=== PATIENT | female | born 1950 | race African-American/Black ===

== ENCOUNTER 2017-02-24 19:04 | Inpatient (IN) | payer MEDICARE, BC ==
[~2017-02-24] VITALS: Ht 165.1 cm; Wt 90.5 kg
[~2017-02-24 19:04] MED LIST: BABY81CH CHEW; BENZ1TAB PO; CLAR10TA7 PO; CLON0.5T PO; COZA100T PO; LORTA5 PO; PRAV80 PO; RISP1 PO; RISP3TAB23 PO; SYNT175T PO; TRAM50 PO; diabetic meds PO
[2017-02-24 22:04] VITALS: BP_SYST 137; BP_SYST 144; BP_DIAS 62; BP_DIAS 87; PULSE 89; PULSE 93; RESP 18; TEMP 97.4; O2SAT 95; O2SAT 98
--- NOTE | 2017-02-25 00:58 | PD ---
HPI Chief Complaint: Altered Mental Status Time Seen by Provider: 00:41 Travel History International Travel<30 days: No Contact w/Intl Traveler<30days: No Traveled to known affect area: No History of Present Illness HPI 66yo F with PMH of schizophrenia was brought in by [facility] for altered mental status for 1 day. As per triage note, pt has repetitive question and black stares and history of schizophrenia. Pt has been in the ED for a few hours prior to moving to a medical room so I was not able to speak with EVAC. Pt complains of dysuria. She is AAOx3. Said she cant walk even though the nurse informed me she walked to the bathroom. Denies any fever, chest pain, sob, n/v, abdominal pain, focal numbness. PFSH Past Medical History Arthritis: No Asthma: No Autoimmune Disease: No Blood Disorders: No Anxiety: Yes Depression: No Heart Rhythm Problems: No Cancer: No Cardiac Catheterization: Yes (?2000 PACEMAKER) Cardiovascular Problems: Yes High Cholesterol: Yes Chemotherapy: No Chest Pain: Yes Congestive Heart Failure: No COPD: No Cerebrovascular Accident: No Diabetes: Yes Patient Takes Glucophage: No Diminished Hearing: No Endocrine: Yes Gastrointestinal Disorders: Yes GERD: Yes Glaucoma: No Genitourinary: No Headaches: Yes Hepatitis: No Hiatal Hernia: No Hypertension: Yes Immune Disorder: No Implanted Vascular Access Dvce: Yes (Stents x 2 plus pacemaker) Kidney Stones: No Musculoskeletal: Yes Neurologic: Yes Psychiatric: Yes Reproductive: No Respiratory: No Migraines: No Myocardial Infarction: Yes Radiation Therapy: No Renal Failure: No Schizophrenia: Yes Seizures: No Sickle Cell Disease: No Sleep Apnea: No Thyroid Disease: Yes Ulcer: Yes PNEUMOCCOCAL Vaccine (Year): 2 ?: Not Menopausal: Yes : 2 Para: 2 Past Surgical History Abdominal Surgery: No AICD: No Arteriovenous Shunt: No Body Medical Devices: stents to heart x2, PACEMAKER Cardiac Surgery: Yes (PACEMAKER AND STENTS) Coronary Stent: Yes Ear Surgery: No Endocrine Surgery: No Eye Surgery: No Genitourinary Surgery: No Gynecologic Surgery: Yes (SMOKE AND FLAME SPECIALIST PROCEDURE TO STOP BLEEDING PER PT) Insulin Pump: No Joint Replacement: No Neurologic Surgery: No Oral Surgery: Yes (TEETH EXTRACTED) Pacemaker: Yes Thoracic Surgery: No Other Surgery: Yes (TEETH EXTRACTION-CARDIAC STENT X2- SMOKE AND FLAME SPECIALIST PROCEDURE TO STOP BLEEDING) Social History Alcohol Use: Yes ("I DRINK A LOT OF BEER") Tobacco Use: Yes (1 PPD) Substance Use: Yes (WEED) Allergies-Medications (Allergen,Severity, Reaction): Coded Allergies: penicillin G (Unverified Allergy, Severe, Hives, VOMITING, 02/25/17) Reported Meds & Prescriptions Reported Meds & Active Scripts Active Ultram (Tramadol HCl) 50 Mg Tab 50-100 Mg PO Q6H PRN FOR PAIN Reported [diabetic meds] 1 Tab PO DAILY Synthroid (Levothyroxine Sodium) 175 Mcg Tab 175 Mcg PO DAILY Lortab 5/325 Tab (Hydrocodone-Acetaminophen) 1 Tab Tab 1 Tab PO Q6H PRN Risperdal (Risperidone) 1 Mg Tab 1 Mg PO DAILY Clonazepam 0.5 Mg Tab 0.5 Mg PO TID Benztropine Mesylate 1 Mg Tab 1 Mg PO Q12H Pravachol 80 Mg Tab (Pravastatin Sod) 80 Mg Tab 80 Mg PO DAILY Baby Aspirin (Aspirin) 81 Mg Chw 81 Mg CHEW DIRECTED Cozaar (Losartan Potassium) 100 Mg Tab 100 Mg PO DAILY Claritin (Loratadine) 10 Mg Tab 10 Mg PO DAILY Risperdal (Risperidone) 3 Mg Tab 4 Mg PO HS Review of Systems Except as stated in HPI: all other systems reviewed are Neg Physical Exam Narrative GENERAL: 66yo F not in distress. SKIN: Focused skin assessment warm/dry. HEAD: Atraumatic. Normocephalic. EYES: Pupils equal and round at 3mm bilaterally. EOMI. ENT: No nasal bleeding or discharge. Mucous membranes pink and moist. NECK: Trachea midline. No JVD. CARDIOVASCULAR: Regular rate and rhythm. No murmur appreciated. RESPIRATORY: No accessory muscle use. Clear to auscultation. Breath sounds equal bilaterally. GASTROINTESTINAL: Abdomen soft, non-tender, nondistended. MUSCULOSKELETAL: No obvious deformities. No clubbing. No cyanosis. No edema. NEUROLOGICAL: Awake and alert. No obvious cranial nerve deficits. Pt will not lift bilateral lower extremity. Normal reflex with good strength of lower extremities during reflex testing. Muscle strength 5/5 in bilateral upper extremity. Sensation intact. PSYCHIATRIC: Inappropriate mood and affect; poor insight and judgment. Data Data Last Documented VS Vital Signs Date Time Temp Pulse Resp B/P (MAP) Pulse Ox O2 Delivery O2 Flow Rate FiO2 02/25/17 14:03 73 14 156/92 (113) 98 Room Air 02/25/17 01:[address] Brain W/O Iv Contrast(Rout) (02/25/17 ) Complete Blood Count With Diff (02/25/17 00:50) Basic Metabolic Panel (Bmp) (02/25/17 00:50) Prothrombin Time / Inr (Pt) (02/25/17 00:50) Act Partial Throm Time (Ptt) (02/25/17 00:50) Thyroid Stimulating Hormone (02/25/17 00:50) Ammonia (02/25/17 00:50) Psych Screen (02/25/17 00:50) Urinalysis - C+S If Indicated (02/25/17 00:50) Diet 1800 Ada Cons Carb (02/25/17 Breakfast) Labs Laboratory Tests Test 02/25/17 01:10 White Blood Count 7.6 TH/MM3 Red Blood Count 4.38 MIL/MM3 Hemoglobin 13.6 GM/DL Hematocrit 40.3 % Mean Corpuscular Volume 91.9 FL Mean Corpuscular Hemoglobin 30.9 PG Mean Corpuscular Hemoglobin Concent 33.7 % Red Cell Distribution Width 14.6 % Platelet Count 275 TH/MM3 Mean Platelet Volume 7.5 FL Neutrophils (%) (Auto) 43.2 % Lymphocytes (%) (Auto) 44.4 % Monocytes (%) (Auto) 8.3 % Eosinophils (%) (Auto) 3.7 % Basophils (%) (Auto) 0.4 % Neutrophils # (Auto) 3.3 TH/MM3 Lymphocytes # (Auto) 3.4 TH/MM3 Monocytes # (Auto) 0.6 TH/MM3 Eosinophils # (Auto) 0.3 TH/MM3 Basophils # (Auto) 0.0 TH/MM3 CBC Comment DIFF FINAL Differential Comment Prothrombin Time 10.5 SEC Prothromb Time International Ratio 1.0 RATIO Activated Partial Thromboplast Time 25.8 SEC Blood Urea Nitrogen 23 MG/DL Creatinine 1.47 MG/DL Random Glucose 146 MG/DL Calcium Level 9.2 MG/DL Sodium Level 138 MEQ/L Potassium Level 3.4 MEQ/L Chloride Level 101 MEQ/L Carbon Dioxide Level 30.1 MEQ/L Anion Gap 7 MEQ/L Estimat Glomerular Filtration Rate 43 ML/MIN Ammonia 25 MCMOL/L Thyroid Stimulating Hormone 3rd Gen 18.000 uIU/ML MDM Medical Decision Making Medical Screen Exam Complete: Yes Emergency Medical Condition: Yes Differential Diagnosis Schizophrenia vs. CVA (doubtful since pt did walk to bathroom as per nurse and move lower extremity when I left the room) vs. UTI vs. dehydration vs. electrolyte abnormality Narrative Course 66yo F with schizophrenia here with "Altered mental status". 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 However, will do work up for altered mental status to r/o other causes first. Pt will not lift her lower extremities on my exam but was noted to be ambulatory by nursing staff earlier. I also saw that pt was able to flex both knees by herself later. Pt seen at the end of my shift so will sign out to PA to follow up labs, UA, CT brain. Psych screen placed. Diagnosis Primary Impression: Schizophrenia Qualified Codes: F20.9 - Schizophrenia, unspecified Katerin Andrew DO Feb 25, 2017 00:58
[2017-02-25 01:17] VITALS: BP 143/84; PULSE 66; RESP 18; TEMP 98.1; O2SAT 96
[2017-02-25 01:26] LABS: AUTOMATED NEUTROPHIL # 3.3 TH/MM3 (1.8-7.7); BASOPHIL % 0.4 % (0.0-2.0); EOSINOPHIL # 0.3 TH/MM3 (0-0.4); EOSINOPHIL % 3.7 % (0.0-4.0); HEMATOCRIT 40.3 % (35.0-46.0); HEMOGLOBIN 13.6 GM/DL (11.6-15.3); LYMPH % 44.4 % (9.0-44.0); LYMPHOCYTE # 3.4 TH/MM3 (1.0-4.8); MEAN CELL VOLUME 91.9 FL (80.0-100.0); MEAN CORPUSCULAR HEMOGLOBIN 30.9 PG (27.0-34.0); MEAN CORPUSCULAR HGB CONC 33.7 % (32.0-36.0); MEAN PLATELET VOLUME 7.5 FL (7.0-11.0); MONO % 8.3 % (0.0-8.0); MONOCYTE # 0.6 TH/MM3 (0-0.9); NEUT % 43.2 % (16.0-70.0); PLATELET COUNT 275 TH/MM3 (150-450); RED BLOOD COUNT 4.38 MIL/MM3 (4.00-5.30); RED CELL DISTRIBUTION WIDTH 14.6 % (11.6-17.2); WHITE BLOOD COUNT 7.6 TH/MM3 (4.0-11.0)
[2017-02-25 01:42] LABS: PROTHROMBIN TIME - PATIENT 10.5 SEC (9.8-11.6)
[2017-02-25 01:46] LABS: BICARBONATE 30.1 MEQ/L (21.0-32.0); CALCIUM 9.2 MG/DL (8.5-10.1); CREATININE 1.47 MG/DL (0.50-1.00)
--- NOTE | 2017-02-25 02:55 | RADRPT ---
EXAM DATE/TIME: 02/25/2017 02:26 [facility] COMPARISON: CT BRAIN W/O CONTRAST, December 18, 2010, 13:38. INDICATIONS : Altered mental status. RADIATION DOSE: 56.35 CTDIvol (mGy) MEDICAL HISTORY : Hypertension. Myocardial infarction. SURGICAL HISTORY : Pacemaker. ENCOUNTER: Initial ACUITY: 1 day PAIN SCALE: Non-responsive LOCATION: cranial TECHNIQUE: Multiple contiguous axial images were obtained of the head. Using automated exposure control and adj ustment of the mA and/or kV according to patient size, radiation dose was kept as low as reasonably a chievable to obtain optimal diagnostic quality images. DICOM format image data is available electro nically for review and comparison. FINDINGS: CEREBRUM: The ventricles are normal for age. No evidence of midline shift, mass lesion, hemorrhage or acute in farction. No extra-axial fluid collections are seen. POSTERIOR FOSSA: The cerebellum and brainstem are intact. The 4th ventricle is midline. The cerebellopontine angle i s unremarkable. EXTRACRANIAL: The visualized portion of the orbits is intact. SKULL: The calvaria is intact. No evidence of skull fracture. CONCLUSION: 1. No evidence of acute intracranial pathology. No masses are identified. Riu Mccollum MD on February 25, 2017 at 2:53 Board Certified Radiologist. This report was verified electronically.
--- NOTE | 2017-02-25 03:22 | PD ---
Physical Exam Date Seen by Provider: Feb 25, 2017 Time Seen by Provider: 03:18 Narrative Neuro: The patient is alert and oriented to person. She keeps her eyes closed but opens them on command. Patient reports inability to move her lower legs although when she is given noxious stimuli she is able to raise her feet up. She is distracted and she is able to flex and extend her feet at the ankles. Patient has intact gross sensation. She has intact light and sharp sensation in her feet. Deep tendon reflexes are 3+ bilaterally. According to the nursing staff she was noted up to the bathroom earlier in the evening. Data Data Last Documented VS Vital Signs Date Time Temp Pulse Resp B/P (MAP) Pulse Ox O2 Delivery O2 Flow Rate FiO2 02/25/17 01:17 98.1 66 18 143/84 (103) 96 Room Air Orders Orders Ct Brain W/O Iv Contrast(Rout) (02/25/17 ) Complete Blood Count With Diff (02/25/17 00:50) Basic Metabolic Panel (Bmp) (02/25/17 00:50) Prothrombin Time / Inr (Pt) (02/25/17 00:50) Act Partial Throm Time (Ptt) (02/25/17 00:50) Thyroid Stimulating Hormone (02/25/17 00:50) Ammonia (02/25/17 00:50) Psych Screen (02/25/17 00:50) Urinalysis - C+S If Indicated (02/25/17 00:50) Labs Laboratory Tests Test 02/25/17 01:10 White Blood Count 7.6 TH/MM3 Red Blood Count 4.38 MIL/MM3 Hemoglobin 13.6 GM/DL Hematocrit 40.3 % Mean Corpuscular Volume 91.9 FL Mean Corpuscular Hemoglobin 30.9 PG Mean Corpuscular Hemoglobin Concent 33.7 % Red Cell Distribution Width 14.6 % Platelet Count 275 TH/MM3 Mean Platelet Volume 7.5 FL Neutrophils (%) (Auto) 43.2 % Lymphocytes (%) (Auto) 44.4 % Monocytes (%) (Auto) 8.3 % Eosinophils (%) (Auto) 3.7 % Basophils (%) (Auto) 0.4 % Neutrophils # (Auto) 3.3 TH/MM3 Lymphocytes # (Auto) 3.4 TH/MM3 Monocytes # (Auto) 0.6 TH/MM3 Eosinophils # (Auto) 0.3 TH/MM3 Basophils # (Auto) 0.0 TH/MM3 CBC Comment DIFF FINAL Differential Comment Prothrombin Time 10.5 SEC Prothromb Time International Ratio 1.0 RATIO Activated Partial Thromboplast Time 25.8 SEC Blood Urea Nitrogen 23 MG/DL Creatinine 1.47 MG/DL Random Glucose 146 MG/DL Calcium Level 9.2 MG/DL Sodium Level 138 MEQ/L Potassium Level 3.4 MEQ/L Chloride Level 101 MEQ/L Carbon Dioxide Level 30.1 MEQ/L Anion Gap 7 MEQ/L Estimat Glomerular Filtration Rate 43 ML/MIN Ammonia 25 MCMOL/L Thyroid Stimulating Hormone 3rd Gen 18.000 uIU/ML [facility] Medical Record Reviewed: Yes Supervised Visit with MALAIKA: Yes Interpretation(s) Last [address] 02/25/17 0000 Signed Impressions: Service Date/Time: Saturday, February 25, 2017 02:26 - CONCLUSION: 1. No evidence of acute intracranial pathology. No masses are identified. Rui Mccollum MD Laboratory Tests Test 02/25/17 01:10 White Blood Count 7.6 TH/MM3 Red Blood Count 4.38 MIL/MM3 Hemoglobin 13.6 GM/DL Hematocrit 40.3 % Mean Corpuscular Volume 91.9 FL Mean Corpuscular Hemoglobin 30.9 PG Mean Corpuscular Hemoglobin Concent 33.7 % Red Cell Distribution Width 14.6 % Platelet Count 275 TH/MM3 Mean Platelet Volume 7.5 FL Neutrophils (%) (Auto) 43.2 % Lymphocytes (%) (Auto) 44.4 % Monocytes (%) (Auto) 8.3 % Eosinophils (%) (Auto) 3.7 % Basophils (%) (Auto) 0.4 % Neutrophils # (Auto) 3.3 TH/MM3 Lymphocytes # (Auto) 3.4 TH/MM3 Monocytes # (Auto) 0.6 TH/MM3 Eosinophils # (Auto) 0.3 TH/MM3 Basophils # (Auto) 0.0 TH/MM3 CBC Comment DIFF FINAL Differential Comment Prothrombin Time 10.5 SEC Prothromb Time International Ratio 1.0 RATIO Activated Partial Thromboplast Time 25.8 SEC Blood Urea Nitrogen 23 MG/DL Creatinine 1.47 MG/DL Random Glucose 146 MG/DL Calcium Level 9.2 MG/DL Sodium Level 138 MEQ/L Potassium Level 3.4 MEQ/L Chloride Level 101 MEQ/L Carbon Dioxide Level 30.1 MEQ/L Anion Gap 7 MEQ/L Estimat Glomerular Filtration Rate 43 ML/MIN Ammonia 25 MCMOL/L Thyroid Stimulating Hormone 3rd Gen 18.000 uIU/ML Differential Diagnosis MDM: High Differential diagnoses: Schizophrenia, schizoaffective disorder, bipolar, anxiety, depression, adjustment reaction, mood disorder NOS, ODD, depressive disorder NOS, dementia, dementia with agitation, psychosis NOS, substance induced mood disorder, DMDD, Asperger syndrome, infection,electrolyte abnormality, malingering. Narrative Course Mental health screening discussed with the patient. Psychiatric screen ordered. The patient has been medically cleared. The patient's complain of an ability to ambulate etiology is unclear whether this may be a conversion type reaction or worsening catatonic type reaction. Patient does have hypothyroidism but her TSH is only 18. I do not believe this is a myxedema. It was noted by the nursing staff that the patient had been up and ambulatory earlier in the evening to the bathroom. This is schizophrenia, medical clearance for psychiatric admission Diagnosis Primary Impression: Schizophrenia Qualified Codes: F20.9 - Schizophrenia, unspecified Additional Impression: Medical clearance for psychiatric admission Condition: Maurilio Leiva Feb 25, 2017 03:22
[2017-02-25 06:40] VITALS: PULSE 65; RESP 16; O2SAT 98
[2017-02-25 08:46] VITALS: BP 163/99; PULSE 68; RESP 16; O2SAT 99
[2017-02-25 14:03] VITALS: BP 156/92; PULSE 73; RESP 14; O2SAT 98
[2017-02-25] MEDS ORDERED: ALUMINUM/MAGNESIUM/SIMETH 30 ML CUP PO PRN (16:30)
[2017-02-25] MEDS ORDERED: LORazepam 2 MG/ML VIAL IM PRN ×2 (16:30)
[2017-02-25] MEDS ORDERED: LORazepam 1 MG TAB PO PRN (16:30)
[2017-02-25] MEDS ORDERED: LORazepam 0.5 MG TAB PO PRN (16:30)
[2017-02-25] MEDS ORDERED: MAGNESIUM HYDROXIDE SUSP 30 ML CUP PO PRN (16:30)
--- NOTE | 2017-02-25 16:40 | HHI.HP ---
Provisional Diagnosis Admission Date [place] I. Schizophrenia [place] II. Deferred [place] III. COPD, diabetes, hypertension, hypothyroidism Certification of Person's Competence To Provide Express and Informed Consent I have personally examined Darya Soni , a person being served at [facility] on, Feb 25, 2017 16:31. Express and informed consent means consent voluntarily given in writing, by a competent person, after sufficient explanation and disclosure of the subject matter involved to enable the person to make a knowing and willful decision without any element of force, fraud, deceit, duress, or other form of constraint or coercion. This person is 18 years of age or older, is not now known to be incompetent to consent to treatment with a guardian advocate, and does not have a health care surrogate or proxy currently making medical treatment decisions. I have found this person to be one of the following: [] Competent to provide express and informed consent, as defined above, for voluntary admission to this facility and is competent to provide express and informed consent for treatment. He/she has the consistent capacity to make well reasoned, willful, and knowing decisions concerning his or her medical or mental health treatment. The person fully and consistently understands the purpose of the admission for examination/placement and is fully capable of personally exercising all rights assured [place] Incompetent to provide express and informed consent to voluntary admission, and this is incompetent to provide express and informed consent to treatment. The person must be transferred to involuntary status and a petition for a guardian advocate filed with the Circuit Court. [] Refusing to provide express and informed consent to voluntary admission but is competent to provide express and informed consent for treatment. The person must be discharged or transferred to involuntary status. Form shall be completed within 24 hours of a person's arrival at the receiving facility and filed in the clinical record of each person: 1. Admitted on a voluntary basis 2. Permitted to provide express and informed consent to his/her own treatment 3. Allowed to transfer from involuntary to voluntary status 4. Prior to permitting a person to consent to his or her own treatment after having been previously found incompetent to consent to treatment. History of Present Illness Capacity: Has Capacity HPI The patient is a 66 year old woman, domiciled with her sister, unemployed, supported by [facility], with psychiatric history of schizophrenia, multiple psychiatric hospitalizations, she is on Risperdal 1 mg in the morning, 3 mg at bedtime, benztropine 1 mg twice a day, no previous suicidal attempts, COPD, who was brought in by [facility] for altered mental status for 1 day. As per triage note, pt has repetitive question and black stares and history of schizophrenia. Pt has been in the ED for a few hours prior to moving to a medical room so I was not able to speak with EVAC. On psychiatric evaluation the patient at the beginning is selectively mute, not speaking, just answering yes or not, she is visibly internally preoccupied. She says that she feels fine and she came here for no reason. To most of my questions she answered I don't know and stares. I spoke with his sister by phone, who told me that the patient was sent to the ER because she has been acutely psychotic, very aggressive at home with family members, and she has stated multiple times that she wants to kill her sister. She has been compliant with her medications, but she has been escalating to psychosis in the last 2 or 3 days. As per sister the patient does not use any drugs or alcohol. Review of Systems Except as stated in HPI: all other systems reviewed are Neg Substance Abuse History Drugs/Alcohol past 12 months No drugs or alcohol drugs or alcohol Past Family Social History Coded Allergies: penicillin G (Unverified Allergy, Severe, Hives, VOMITING, 02/25/17) Active Scripts Tramadol Hcl (Ultram) 50 Mg Tab, 50-100 MG PO Q6H Y, #30 TAB FOR PAIN Prov:Ethan Szymanski MD 12/28/12 Reported Medications [diabetic meds] No Conflict Check, 1 TAB PO DAILY 05/04/13 Synthroid 175 mcg (Synthroid 175 mcg) 175 Mcg Tab, 175 MCG PO DAILY, TAB 12/28/12 Hydrocodone/Acetaminophen 5 mg/325 mg (Hydrocodone/Acetaminophen 5 mg/325 mg) 1 Tab Tab, 1 TAB PO Q6H Y, TAB 12/28/12 Risperidone (Risperdal) 1 Mg Tab, 1 MG PO DAILY, TAB 11/21/12 Clonazepam (Clonazepam) 0.5 Mg Tab, 0.5 MG PO TID, TAB 11/21/12 Benztropine Mesylate (Benztropine Mesylate) 1 Mg Tab, 1 MG PO Q12H, TAB 11/21/12 Pravastatin Sod (Pravachol 80 Mg Tab) 80 Mg Tab, 80 MG PO DAILY 05/31/12 Aspirin (Baby Aspirin) 81 Mg Chw, 81 MG CHEW DIRECTED 05/31/12 Losartan Potassium (Cozaar) 100 Mg Tab, 100 MG PO DAILY 05/31/12 Loratadine (Claritin) 10 Mg Tab, 10 MG PO DAILY 05/31/12 Risperidone (Risperdal) 3 Mg Tab, 4 MG PO HS 05/29/11 Current Medications Medications (Trade) Dose Ordered Sig/Brittney Route Start Time Stop Time Status Last Admin (Ativan) 1 mg Q6H PRN PO 02/25/17 16:30 UNV (Ativan Inj) 1 mg Q6H PRN IM 02/25/17 16:30 UNV (Ativan) 0.5 mg Q12H PRN PO 02/25/17 16:30 UNV (Ativan Inj) 0.5 mg Q12H PRN IM 02/25/17 16:30 UNV (Tylenol) 650 mg Q4H PRN PO 02/25/17 16:30 UNV (Milk Of Magnesia Liq) 30 ml DAILY PRN PO 02/25/17 16:30 UNV (Mag-Al Plus Susp Liq) 30 ml Q6H PRN PO 02/25/17 16:30 UNV (Habitrol 21 Mg Patch.24 Hr) 1 patch DAILY T-DERMAL 02/25/17 16:30 UNV (Aspirin Chew) 81 mg DAILY CHEW 02/25/17 16:30 UNV (Cogentin) 1 mg Q12H PO 02/25/17 16:30 UNV (KlonoPIN) 0.5 mg TID PO 02/25/17 18:00 UNV (Claritin) 10 mg DAILY PO 02/25/17 16:30 UNV (Pravachol) 80 mg DAILY PO 02/25/17 16:30 UNV (risperDAL) 1 mg DAILY PO 02/25/17 16:30 UNV Non-Formulary Medication 100 mg DAILY PO 02/25/17 16:30 UNV Non-Formulary Medication 175 mcg DAILY PO 02/25/17 16:30 UNV Physical Exam Vital Signs Vital Signs Date Time Temp Pulse Resp B/P (MAP) Pulse Ox O2 Delivery O2 Flow Rate FiO2 02/25/17 14:03 73 14 156/92 (113) 98 Room Air 02/25/17 01:17 98.1 Lab Results Test 02/25/17 01:10 White Blood Count 7.6 TH/MM3 Red Blood Count 4.38 MIL/MM3 Hemoglobin 13.6 GM/DL Hematocrit 40.3 % Mean Corpuscular Volume 91.9 FL Mean Corpuscular Hemoglobin 30.9 PG Mean Corpuscular Hemoglobin Concent 33.7 % Red Cell Distribution Width 14.6 % Platelet Count 275 TH/MM3 Mean Platelet Volume 7.5 FL Neutrophils (%) (Auto) 43.2 % Lymphocytes (%) (Auto) 44.4 % Monocytes (%) (Auto) 8.3 % Eosinophils (%) (Auto) 3.7 % Basophils (%) (Auto) 0.4 % Neutrophils # (Auto) 3.3 TH/MM3 Lymphocytes # (Auto) 3.4 TH/MM3 Monocytes # (Auto) 0.6 TH/MM3 Eosinophils # (Auto) 0.3 TH/MM3 Basophils # (Auto) 0.0 TH/MM3 CBC Comment DIFF FINAL Differential Comment Prothrombin Time 10.5 SEC Prothromb Time International Ratio 1.0 RATIO Activated Partial Thromboplast Time 25.8 SEC Blood Urea Nitrogen 23 MG/DL Creatinine 1.47 MG/DL Random Glucose 146 MG/DL Calcium Level 9.2 MG/DL Sodium Level 138 MEQ/L Potassium Level 3.4 MEQ/L Chloride Level 101 MEQ/L Carbon Dioxide Level 30.1 MEQ/L Anion Gap 7 MEQ/L Estimat Glomerular Filtration Rate 43 ML/MIN Ammonia 25 MCMOL/L Thyroid Stimulating Hormone 3rd Gen 18.000 uIU/ML Mental Status Examination Appearance: Appropriate Consciousness: Alert Orientation: Person Motor Activity: Normal gait Speech: Hesitant, Other (selectively mute) Fund of Knowledge: Inadequate Attention and Concentration: Inadequate Memory: Impaired Mood: Appropriate Affect: Appropriate Thought Process & Associations: Loose associations Thought Content: Thought blocking Hallucination Type: None Delusion Type: None Suicidal Ideation: No Suicidal Plan: No Suicidal Intention: No Homicidal Ideation: No Homicidal Plan: No Homicidal Intention: No Insight: Poor Judgment: Poor Assessment & Plan Problem List: (1) Schizophrenia ICD Codes: F20.9 - Schizophrenia, unspecified Status: Acute Assessment & Plan: Patient is acutely psychotic, selectively mute, paranoid, internally stimulated, no cooperating with the psychiatric assessment. Patient has been reportedly psychotic home, aggressive with family, making homicidal statements. At this moment patient represents a danger to herself and others due to the level of psychosis. She needs psychiatric admission for stabilization. I would restart Risperdal 1 mg in the morning 3 mg at bedtime. Benztropine 1 mg twice a day. I also would restart her medical medications. I will initiate a Johnson act. Patient will be transferred to psychiatric xiao. Assessment & Plan Estimated LOS: days Problem Qualifiers (1) Schizophrenia: Qualified Codes: F20.9 - Schizophrenia, unspecified Kadeem Alonso MD Feb 25, 2017 16:39
[2017-02-25] MEDS: clonazePAM 0.5 MG TAB PO SCH (18:00)
[2017-02-25 18:51] VITALS: BP 158/77; PULSE 61; RESP 16; O2SAT 98
[2017-02-25] MEDS: PRAVASTATIN SOD 80 MG TAB PO SCH (19:30)
[2017-02-25] MEDS: BENZTROPINE MESYLATE 1 MG TAB PO SCH (19:31)
[2017-02-25] MEDS: LEVOTHYROXINE SODIUM 100 MCG TAB PO SCH (19:32)
[2017-02-25] MEDS: LEVOTHYROXINE SODIUM 75 MCG TAB PO SCH (19:32)
[2017-02-25] MEDS: LORATADINE 10 MG TAB PO SCH (19:33)
[2017-02-25] MEDS: ASPIRIN 81 MG CHEW TAB CHEW SCH (19:35)
[2017-02-25] MEDS: LOSARTAN 50 MG TAB PO SCH (19:35)
[2017-02-25] MEDS: risperiDONE 1 MG TAB PO SCH (19:35)
[2017-02-25] MEDS: NICOTINE 21 MG/24 HR PATCH T-DERMAL SCH (19:36)
[2017-02-25 22:40] VITALS: BP 188/88; PULSE 61; RESP 18; TEMP 97.3; O2SAT 100
[2017-02-26] MEDS: LEVOTHYROXINE SODIUM 100 MCG TAB PO SCH (05:14)
[2017-02-26] MEDS: BENZTROPINE MESYLATE 1 MG TAB PO SCH ×2 (05:14→17:00)
[2017-02-26] MEDS: LEVOTHYROXINE SODIUM 75 MCG TAB PO SCH (05:14)
[2017-02-26 06:00] VITALS: BP 146/87; PULSE 95; RESP 18; TEMP 97.4; O2SAT 96
[2017-02-26] MEDS: PRAVASTATIN SOD 80 MG TAB PO SCH (08:21)
[2017-02-26] MEDS: LORATADINE 10 MG TAB PO SCH (08:21)
[2017-02-26] MEDS: ASPIRIN 81 MG CHEW TAB CHEW SCH (08:21)
[2017-02-26] MEDS: risperiDONE 1 MG TAB PO SCH (08:21)
[2017-02-26] MEDS: NICOTINE 21 MG/24 HR PATCH T-DERMAL SCH (08:21)
[2017-02-26] MEDS: clonazePAM 0.5 MG TAB PO SCH ×3 (08:21→18:53)
[2017-02-26] MEDS: REMOVE OLD NICOTINE PATCH T-DERMAL SCH (08:24)
--- NOTE | 2017-02-26 10:16 | PD.CONS ---
[facility] By Dr. Alonso Reason for Consult Opinion recommendation on treatment of patient's diabetes mellitus, hypertension , hyperlipidemia, hypothyroidism Primary Care Physician Unknown Diagnoses: History of Present Illness 66-year-old female who was recently admitted to inpatient psychiatric unit for acute exacerbation of schizophrenia and psychosis with a history of diabetes mellitus type 2, hypertension, hyperlipidemia, coronary artery disease who is currently sitting in the room with no complaints of chest pain or palpitations to me. She does not have a clear understanding why she is in the hospital. She denies any active suicidal ideations or depression at this time to me. She has no other complaints at this time. She cannot tell me the different medications that she is taking. She states "they take care of this for me". Review of Systems ROS Limitations: Poor Historian Constitutional: DENIES: Fatigue, Fever, Chills, Change in appetite Endocrine: DENIES: Heat/cold intolerance Eyes: DENIES: Blurred vision, Eye pain, Vision loss Respiratory: DENIES: Cough, Shortness of breath Cardiovascular: DENIES: Chest pain, Palpitations, Dyspnea on Exertion, Lower Extremity Edema Gastrointestinal: DENIES: Abdominal pain, Constipation, Diarrhea, Nausea, Vomiting Genitourinary: DENIES: Dysuria Musculoskeletal: DENIES: Joint pain, Muscle aches, Stiffness Integumentary: DENIES: Rash Hematologic/lymphatic: DENIES: Bruising Immunologic/allergic: DENIES: Eczema Neurologic: DENIES: Headache, Localized weakness Psychiatric: DENIES: Anxiety, Depression, Suicidal Ideation Past Family Social History Allergies: Coded Allergies: penicillin G (Unverified Allergy, Severe, Hives, VOMITING, 02/25/17) Past Medical History Diabetes mellitus type 2 CAD Hypertension Hyperlipidemia Hypothyroidism Past Surgical History Pacemaker Reported Medications Unknown diabetic medication Synthroid (Levothyroxine Sodium) 175 Mcg Tab 175 Mcg PO DAILY Lortab 5/325 Tab (Hydrocodone-Acetaminophen) 1 Tab Tab 1 Tab PO Q6H PRN Risperdal (Risperidone) 1 Mg Tab 1 Mg PO DAILY Clonazepam 0.5 Mg Tab 0.5 Mg PO TID Benztropine Mesylate 1 Mg Tab 1 Mg PO Q12H Pravachol 80 Mg Tab (Pravastatin Sod) 80 Mg Tab 80 Mg PO DAILY Baby Aspirin (Aspirin) 81 Mg Chw 81 Mg CHEW DIRECTED Cozaar (Losartan Potassium) 100 Mg Tab 100 Mg PO DAILY Claritin (Loratadine) 10 Mg Tab 10 Mg PO DAILY Risperdal (Risperidone) 3 Mg Tab 4 Mg PO HS Family History She does not know Social History She states she smokes half a pack of cigarettes per day does not drink alcohol Physical Exam Vital Signs Vital Signs Date Time Temp Pulse Resp B/P (MAP) Pulse Ox O2 Delivery O2 Flow Rate FiO2 02/26/17 06:00 97.4 95 18 146/87 (106) 96 02/25/17 22:40 97.3 61 18 188/88 (121) 100 02/25/17 19:50 02/25/17 18:51 61 16 158/77 (104) 98 Room Air 02/25/17 14:03 73 14 156/92 (113) 98 Room Air Physical Exam GENERAL: This is a well-nourished, well-developed patient, in no apparent distress. SKIN: No rashes, ecchymoses or lesions. Cool and dry. HEAD: Atraumatic. Normocephalic. No temporal or scalp tenderness. EYES: Extraocular motions intact. No scleral icterus. No injection or drainage. ENT: Nose without bleeding, purulent drainage or septal hematoma. NECK: Trachea midline. No JVD or lymphadenopathy. Supple, nontender, no meningeal signs. CARDIOVASCULAR: Regular rate and rhythm RESPIRATORY: Clear to auscultation. Breath sounds equal bilaterally. No wheezes , rales, or rhonchi. GASTROINTESTINAL: Abdomen soft, non-tender, obese, nondistended. Normoactive bowel sounds MUSCULOSKELETAL: Extremities without clubbing, cyanosis, or edema. No joint tenderness, effusion, or edema noted. No calf tenderness. Negative Homans sign bilaterally. NEUROLOGICAL: Awake and alert to person and place. Cranial nerves II through XII intact. Motor and sensory grossly within normal limits. Five out of 5 muscle strength in all muscle groups. Normal speech. Result Diagram: 02/25/17 01102/25/17 0110 Imaging Last Impressions Head CT 02/25/17 0000 Signed Impressions: Service Date/Time: Saturday, February 25, 2017 02:26 - CONCLUSION: 1. No evidence of acute intracranial pathology. No masses are identified. Rui Mccollum MD Assessment and Plan Assessment and Plan 1. Acute exacerbation of schizophrenia with psychosis - treatment per psychiatry. 2. History of CAD - continue with aspirin 3. History of hyperlipidemia continue with statin 4. History of hypertension, essential chronic- continue with Cozaar 5. Hypothyroidism - patient with elevated TSH, is unknown if this is due to noncompliance with medication versus need to increase dosing. At this time, we' ll attempt to get more history from family prior to determination of dosage adjustment. This time will restart the home dosage of Synthroid 175 MCG. 6. Diabetes mellitus, type II monitor blood glucose levels with sliding-scale insulin coverage; will need to determine name of home diabetic medication patient is currently taking. Thank you for this consultation. Samara Rosenberg MD Feb 26, 2017 10:16
[2017-02-26] MEDS: LOSARTAN 50 MG TAB PO SCH (10:21)
[2017-02-26] MEDS ORDERED: GLUCAGON 1 MG/ML VIAL OTHER PRN (10:30)
[2017-02-26] MEDS ORDERED: DEXTROSE 50% IN WATER 50 ML VIAL(D50) IV PUSH PRN (10:30)
[2017-02-26] MEDS: INSULIN ASPART SUPPLEMENTAL SCALE SQ SCH ×3 (11:30→20:03)
[2017-02-26 12:08] LABS: BICARBONATE 27.5 MEQ/L (21.0-32.0); BLOOD UREA NITROGEN 20 MG/DL (7-18); CHLORIDE 101 MEQ/L (98-107); CHOLESTEROL 149 MG/DL (120-200); CHOLESTEROL/ HDL RATIO 3.37 RATIO; CREATININE 1.52 MG/DL (0.50-1.00); GLOMERULAR FILTRATION RATE 41 ML/MIN (>89); GLUCOSE,RANDOM 93 MG/DL (74-106); HDL CHOLESTEROL 44.2 MG/DL (40.0-60.0); LDL CHOLESTEROL 82 MG/DL (0-99); SODIUM (NA) 137 MEQ/L (136-145); TRIGLYCERIDES 116 MG/DL (42-150)
[2017-02-26 13:36] LABS: HEMOGLOBIN A1C 6.5 % (4.3-6.0)
--- NOTE | 2017-02-26 13:40 | HHI.PYPN ---
Subjective Remarks The patient was seen today for psychiatric reevaluation. Chart was reviewed. Hospitalist recommendations appreciated. Case discussed with nursing charge. On psychiatric evaluation patient is calm, cooperative, at the beginning hesitant to talk, but sensitivity to redirection. Patient says that she was never aggressive or treatment anybody. She says that she has been living with her sister and her niece "they live with me I don't live with them", she says that she doesn't even know the reason they sent her to the hospital patient has some speech delay and blocking thought, she is internally preoccupied, but she is fully oriented 3, logical, coherent and relevant. No prominent paranoia is observed during this evaluation. No agitation, behavioral dysregulation or aggressive behavior reported. She has been compliant her medications, no significant side effects. Review of Systems Except as stated in HPI: all other systems reviewed are Neg Mental Status Examination Appearance: Appropriate Consciousness: Alert Orientation: Person Motor Activity: Normal gait Speech: Hesitant, Other Fund of Knowledge: Inadequate Attention and Concentration: Inadequate Memory: Impaired Mood: Appropriate Affect: Appropriate Thought Process & Associations: Loose associations Thought Content: Thought blocking Hallucination Type: None Delusion Type: None Suicidal Ideation: No Suicidal Plan: No Suicidal Intention: No Homicidal Ideation: No Homicidal Plan: No Homicidal Intention: No Insight: Poor Judgment: Poor Results Labs Test 02/26/17 10:49 Blood Urea Nitrogen 20 MG/DL Creatinine 1.52 MG/DL Random Glucose 93 MG/DL Calcium Level 10.0 MG/DL Sodium Level 137 MEQ/L Potassium Level 3.8 MEQ/L Chloride Level 101 MEQ/L Carbon Dioxide Level 27.5 MEQ/L Anion Gap 9 MEQ/L Estimat Glomerular Filtration Rate 41 ML/MIN Triglycerides Level 116 MG/DL Cholesterol Level 149 MG/DL LDL Cholesterol 82 MG/DL HDL Cholesterol 44.2 MG/DL Cholesterol/HDL Ratio 3.37 RATIO Vitals/IOs Vital Signs Date Time Temp Pulse Resp B/P (MAP) Pulse Ox O2 Delivery O2 Flow Rate FiO2 02/26/17 06:00 97.4 95 18 146/87 (106) 96 02/25/17 18:51 Room Air Assessment & Plan Problem List: (1) Schizophrenia ICD Codes: F20.9 - Schizophrenia, unspecified Status: Acute Assessment & Plan: Patient continues to be acutely psychotic. Continue current psychotropic regimen. Consult psychiatry for second opinion. Brief supportive psychotherapy and psychoeducation provided. Assessment & Plan Estimated LOS: days Justification for Cont. Inpt. Patient is acutely psychotic and needs psychiatric hospitalization for stabilization. Problem Qualifiers (1) Schizophrenia: Qualified Codes: F20.9 - Schizophrenia, unspecified Kadeem Alonso MD Feb 26, 2017 13:40
[2017-02-26 17:55] VITALS: BP 123/74; PULSE 79; RESP 18; TEMP 98.2; O2SAT 100
[2017-02-26] MEDS ORDERED: risperiDONE 1 MG TAB PO SCH (21:00)
[2017-02-27 05:33] VITALS: BP 155/72; PULSE 85; RESP 18; TEMP 98.3; O2SAT 95
[2017-02-27] MEDS: BENZTROPINE MESYLATE 1 MG TAB PO SCH ×2 (05:53→17:45)
[2017-02-27] MEDS: LEVOTHYROXINE SODIUM 75 MCG TAB PO SCH (05:53)
[2017-02-27] MEDS: LEVOTHYROXINE SODIUM 100 MCG TAB PO SCH (05:53)
[2017-02-27] MEDS: PRAVASTATIN SOD 80 MG TAB PO SCH (07:47)
[2017-02-27] MEDS: clonazePAM 0.5 MG TAB PO SCH ×2 (07:47→21:45)
[2017-02-27] MEDS: risperiDONE 1 MG TAB PO SCH ×2 (07:47→21:45)
[2017-02-27] MEDS: ASPIRIN 81 MG CHEW TAB CHEW SCH (07:47)
[2017-02-27] MEDS: LORATADINE 10 MG TAB PO SCH (07:47)
[2017-02-27] MEDS: LOSARTAN 50 MG TAB PO SCH (07:48)
[2017-02-27] MEDS: NICOTINE 21 MG/24 HR PATCH T-DERMAL SCH (07:48)
[2017-02-27] MEDS: INSULIN ASPART SUPPLEMENTAL SCALE SQ SCH ×4 (08:00→21:00)
[2017-02-27] MEDS: REMOVE OLD NICOTINE PATCH T-DERMAL SCH (11:28)
--- NOTE | 2017-02-27 12:07 | HHI.PYPN ---
Subjective Remarks The patient was seen and examined for psychiatric reevaluation. Chart was reviewed. Vital signs and labs were reviewed. Case was discussed with nursing charge. On psychiatric evaluation patient is found sitting down in the recreational area. She is calm, she is cooperative, but she seems to be distant and amotivated. She reports good mood, she says that she feels fine, but she has a very flat affect. She reports mild neck pain, but she has full mobility. In physical exam mild stiffness is noted in both arms, but she can follow commands and moved and spontaneously. Speech reticency and delay, blocking thought are also noted. Review of Systems Except as stated in HPI: all other systems reviewed are Neg Mental Status Examination Appearance: Appropriate Consciousness: Alert Orientation: Person Motor Activity: Normal gait Speech: Hesitant, Other Fund of Knowledge: Inadequate Attention and Concentration: Inadequate Memory: Impaired Mood: Appropriate Affect: Appropriate Thought Process & Associations: Loose associations Thought Content: Thought blocking Hallucination Type: None Delusion Type: None Suicidal Ideation: No Suicidal Plan: No Suicidal Intention: No Homicidal Ideation: No Homicidal Plan: No Homicidal Intention: No Insight: Poor Judgment: Poor Results Vitals/IOs Vital Signs Date Time Temp Pulse Resp B/P (MAP) Pulse Ox O2 Delivery O2 Flow Rate FiO2 02/27/17 05:33 98.3 85 18 155/72 (99) 95 02/25/17 18:51 Room Air Assessment & Plan Problem List: (1) Schizophrenia ICD Codes: F20.9 - Schizophrenia, unspecified Status: Acute Assessment & Plan: Patient continues to be very flat, with prominent lack of motivation, stiffness, speech delay and blocking thought. We will increase Risperdal to 2 mg in the morning and 3 mg a.m to help with psychosis. Patient also presents neck pain that could be related with mild acute dystonia, continue benztropine 1 mg twice a day, increase clonazepam to 1 mg twice a day. I wonder also if her flat affect, lack of motivation, stiffness, poverty of speech could be related with mild catatonia. Follow up closely this symptoms. We will increase clonazepam to 1 mg twice a day, and also would give an additional dose of clonazepam 1 mg now for catatonia. 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 Inpt. Patient is acutely psychotic, catatonic, she needs to continue psychiatric hospitalization for stabilization Problem Qualifiers (1) Schizophrenia: Qualified Codes: F20.9 - Schizophrenia, unspecified Kadeem Alonso MD Feb 27, 2017 12:06
[2017-02-27] MEDS ORDERED: IBUPROFEN 600 MG TAB PO STA (12:26)
[2017-02-27] MEDS ORDERED: clonazePAM 1 MG TAB PO SCH (12:26)
--- NOTE | 2017-02-27 13:39 | HHI.PR ---
Subjective Remarks Follow-up visit on 66-year-old female admitted due to acute exacerbation of schizophrenia and psychosis with past medical history of diabetes, HTN, HLD, and CAD. Patient seen and examined in her room resting comfortably. She denies any fevers, chills, nausea, vomiting, or diarrhea. Discussed with nurse no acute concerns, BP on the high side. Discussed with patient Will adjust her medications for better control. Objective Vitals Vital Signs Date Time Temp Pulse Resp B/P (MAP) Pulse Ox O2 Delivery O2 Flow Rate FiO2 02/27/17 05:33 98.3 85 18 155/72 (99) 95 02/26/17 17:55 98.2 79 18 123/74 (90) 100 Result Diagram: 02/25/17 0110 02/26/17 1049 Imaging Last Impressions Head CT 02/25/17 0000 Signed Impressions: Service Date/Time: Saturday, February 25, 2017 02:26 - CONCLUSION: 1. No evidence of acute intracranial pathology. No masses are identified. Rui Mccollum MD Objective Remarks ENERAL: This is a well-nourished, well-developed patient, in no apparent distress. SKIN: Cool and dry. HEAD: Atraumatic. Normocephalic. EYES: Extraocular motions intact. No scleral icterus. No injection or drainage. ENT: Nose without bleeding, purulent drainage or septal hematoma. NECK: Trachea midline. CARDIOVASCULAR: Regular rate and rhythm RESPIRATORY: Clear to auscultation. Breath sounds equal bilaterally. No wheezes , rales, or rhonchi. GASTROINTESTINAL: Abdomen soft, non-tender, obese, nondistended. Normoactive bowel sounds. MUSCULOSKELETAL: Extremities without clubbing, cyanosis, or edema. NEUROLOGICAL: Awake and alert to person and place. Motor and sensory grossly within normal limits. Five out of 5 muscle strength in all muscle groups. Normal speech. A/P Assessment and Plan 66-year-old female admitted due to acute exacerbation of schizophrenia and psychosis with past medical history of diabetes, HTN, HLD, and CAD. Schizophrenia with psychosis - Treatment per psychiatry CAD HLD - Continue home dose statin, continue heart healthy diet, continue modifiable risk factors HTN, mildly elevated - Continue patient's dose of Cozaar - Will add amlodipine 5 mg, monitor for side effects such as leg edema - Continue trending blood pressures Hypothyroidism - TSH elevated unknown if this is due to noncompliance versus inadequate dosing. - Continue Synthroid 75 MCG's, will need recheck in 6 weeks DM II - Hemoglobin A1c 6.5 - Continue ADA diet, continue insulin sliding scale - Blood sugars well controlled - Uncertain what patient is taking at home for diabetes, will hold off on any metformin due to reduced renal function. Decreased renal function - Looking back through [facility] EMR patient's creatinine will range from 0.93- 2.11 this is from 2001 to present time. - She most likely has chronic kidney insufficiency - Continue diabetic, HTN, and HLD control. Neck pain - Patient complained of neck pain to psychiatrists, possibly related to mild dystonia. - Medications adjusted, provided with one time dose of ibuprofen - Can use Tylenol in case neck pain continues. DVT prophylaxis - Patient ambulating Plan discussed with patient and nurse. Vish Sanchez Feb 27, 2017 13:39
--- NOTE | 2017-02-27 17:11 | PD.PSY.CON ---
Provisional Diagnosis Admission Date Feb 25, 2017 at 16:28 Hamlin I. Schizophrenia Hamlin II. Deferred Hamlin III. COPD, diabetes, hypertension, hypothyroidism History of Present Illness Service Psychiatry Consult Requested By Dr. Alonso Reason for Consult Second opinion Primary Care Physician Unknown HPI The patient is a 66 year old woman, domiciled with her sister, unemployed, supported by [facility], with psychiatric history of schizophrenia, multiple psychiatric hospitalizations, she is on Risperdal 1 mg in the morning, 3 mg at bedtime, benztropine 1 mg twice a day, no previous suicidal attempts, COPD, who was brought in by [facility] for altered mental status for 1 day. As per triage note, pt has repetitive question and black stares and history of schizophrenia. Pt has been in the ED for a few hours prior to moving to a medical room so I was not able to speak with [facility]. On psychiatric evaluation the patient at the beginning is selectively mute, not speaking, just answering yes or not, she is visibly internally preoccupied. She says that she feels fine and she came here for no reason. To most of my questions she answered I don't know and stares. I spoke with his sister by phone, who told me that the patient was sent to the ER because she has been acutely psychotic, very aggressive at home with family members, and she has stated multiple times that she wants to kill her sister. She has been compliant with her medications, but she has been escalating to psychosis in the last 2 or 3 days. As per sister the patient does not use any drugs or alcohol. 02/27/17 - Second opinion Patient seen for second opinion. Patient is a 66 y/o AA woman, domiciled with sister, unemployed on SSI with past psychiatric history of schizophrenia, multiple admissions, no prior suicide attempts who was brought in by EMS for altered mental status. Patient was found lying on hospital bed, calm and cooperative. She was noted to be somewhat disorganized during interview. She mentions that she came to the hospital because she was feeling ill and could not stand up. She states that her mood has been "fresh" but unable to recall events that brought her into the hospital. Patient admits to noncompliance to medications prior to admission. Past Family Social History Coded Allergies: penicillin G (Unverified Allergy, Severe, Hives, VOMITING, 02/25/17) Active Scripts Tramadol Hcl (Ultram) 50 Mg Tab, 50-100 MG PO Q6H Y, #30 TAB FOR PAIN Prov:Ethan Szymanski MD 12/28/12 Reported Medications [diabetic meds] No Conflict Check, 1 TAB PO DAILY 05/04/13 Synthroid 175 mcg (Synthroid 175 mcg) 175 Mcg Tab, 175 MCG PO DAILY, TAB 12/28/12 Hydrocodone/Acetaminophen 5 mg/325 mg (Hydrocodone/Acetaminophen 5 mg/325 mg) 1 Tab Tab, 1 TAB PO Q6H Y, TAB 12/28/12 Risperidone (Risperdal) 1 Mg Tab, 1 MG PO DAILY, TAB 11/21/12 Clonazepam (Clonazepam) 0.5 Mg Tab, 0.5 MG PO TID, TAB 11/21/12 Benztropine Mesylate (Benztropine Mesylate) 1 Mg Tab, 1 MG PO Q12H, TAB 11/21/12 Pravastatin Sod (Pravachol 80 Mg Tab) 80 Mg Tab, 80 MG PO DAILY 05/31/12 Aspirin (Baby Aspirin) 81 Mg Chw, 81 MG CHEW DIRECTED 05/31/12 Losartan Potassium (Cozaar) 100 Mg Tab, 100 MG PO DAILY 05/31/12 Loratadine (Claritin) 10 Mg Tab, 10 MG PO DAILY 05/31/12 Risperidone (Risperdal) 3 Mg Tab, 4 MG PO HS 05/29/11 Current Medications Medications (Trade) Dose Ordered Sig/Brittney Route Start Time Stop Time Status Last Admin (Ativan) 0.5 mg Q12H PRN PO 02/25/17 16:30 (Ativan Inj) 0.5 mg Q12H PRN IM 02/25/17 16:30 (Tylenol) 650 mg Q4H PRN PO 02/25/17 16:30 (Milk Of Magnesia Liq) 30 ml DAILY PRN PO 02/25/17 16:30 (Mag-Al Plus Susp Liq) 30 ml Q6H PRN PO 02/25/17 16:30 (Habitrol 21 Mg Patch.24 Hr) 1 patch DAILY T-DERMAL 02/25/17 16:30 02/27/17 07:48 (Aspirin Chew) 81 mg DAILY CHEW 02/25/17 16:30 02/27/17 07:47 (Cogentin) 1 mg Q12H PO 02/25/17 18:00 02/27/17 05:53 (Claritin) 10 mg DAILY PO 02/25/17 17:00 02/27/17 07:47 (Pravachol) 80 mg DAILY PO 02/25/17 17:00 02/27/17 07:47 (Cozaar) 100 mg DAILY PO 02/25/17 17:00 02/27/17 07:48 (Synthroid) 100 mcg DAILY@0600 PO 02/25/17 17:00 02/27/17 05:53 Miscellaneous Information 1 DAILY T-DERMAL 02/26/17 09:00 02/27/17 11:28 (Synthroid) 75 mcg DAILY@0600 PO 02/25/17 17:00 02/27/17 05:53 (D50w (Vial) Inj) 50 ml UNSCH PRN IV PUSH 02/26/17 10:30 (Glucagon Inj) 1 mg UNSCH PRN OTHER 02/26/17 10:30 (NovoLOG SUPPLEMENTAL SCALE) 1 ACHS SLIDING SCALE SQ 02/26/17 12:00 02/26/17 17:00 (KlonoPIN) 1 mg BID PO 02/27/17 21:00 (risperDAL) 3 mg HS PO 02/27/17 21:00 (risperDAL) 2 mg DAILY PO 02/28/17 09:00 (KlonoPIN) 1 mg STAT PO 02/27/17 12:26 02/27/17 12:38 (Norvasc) 5 mg DAILY PO 02/28/17 09:00 Physical Exam Vital Signs Vital Signs Date Time Temp Pulse Resp B/P (MAP) Pulse Ox O2 Delivery O2 Flow Rate FiO2 02/27/17 05:33 98.3 85 18 155/72 (99) 95 02/25/17 18:51 Room Air Mental Status Examination Appearance: Appropriate Consciousness: Alert Orientation: Person Motor Activity: Normal gait Speech: Hesitant, Other Fund of Knowledge: Inadequate Attention and Concentration: Inadequate Memory: Impaired Mood: Appropriate Affect: Appropriate Thought Process & Associations: Loose associations, Other (concrete) Thought Content: Thought blocking Hallucination Type: None Delusion Type: None Suicidal Ideation: No Suicidal Plan: No Suicidal Intention: No Homicidal Ideation: No Homicidal Plan: No Homicidal Intention: No Insight: Poor Judgment: Poor Assessment & Plan Problem List: (1) Schizophrenia ICD Codes: F20.9 - Schizophrenia, unspecified Status: Acute (2) 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 Alonso, and I agree and concur with his assessment and plan. Problem Qualifiers (1) Schizophrenia: Qualified Codes: F20.9 - Schizophrenia, unspecified Corbin Mckeon MD Feb 27, 2017 17:11
[2017-02-28] MEDS: ACETAMINOPHEN 325 MG TAB PO PRN ×2 (02:25→17:45)
[2017-02-28 05:58] VITALS: BP 98/60; PULSE 70; RESP 20; TEMP 97.9; O2SAT 97
[2017-02-28] MEDS: LEVOTHYROXINE SODIUM 100 MCG TAB PO SCH (05:58)
[2017-02-28] MEDS: BENZTROPINE MESYLATE 1 MG TAB PO SCH ×2 (05:58→17:46)
[2017-02-28] MEDS: LEVOTHYROXINE SODIUM 75 MCG TAB PO SCH (05:58)
[2017-02-28] MEDS: INSULIN ASPART SUPPLEMENTAL SCALE SQ SCH ×3 (08:00→16:00)
[2017-02-28 08:30] VITALS: BP 106/62
[2017-02-28] MEDS: LOSARTAN 50 MG TAB PO SCH (09:00)
[2017-02-28] MEDS ORDERED: amLODIPine BESYLATE 5 MG TAB PO SCH (09:00)
[2017-02-28] MEDS: REMOVE OLD NICOTINE PATCH T-DERMAL SCH (09:00)
[2017-02-28] MEDS: ASPIRIN 81 MG CHEW TAB CHEW SCH (09:22)
[2017-02-28] MEDS: NICOTINE 21 MG/24 HR PATCH T-DERMAL SCH (09:22)
[2017-02-28] MEDS: risperiDONE 1 MG TAB PO SCH ×2 (09:23→22:38)
[2017-02-28] MEDS: LORATADINE 10 MG TAB PO SCH (09:23)
[2017-02-28] MEDS: clonazePAM 0.5 MG TAB PO SCH ×2 (09:23→22:38)
[2017-02-28] MEDS: PRAVASTATIN SOD 80 MG TAB PO SCH (09:23)
--- NOTE | 2017-02-28 12:52 | HHI.PR ---
Subjective Remarks Follow-up visit on 66-year-old female with acute exacerbation of schizophrenia, psychosis, diabetes, hype retention, hyperlipidemia, and coronary artery disease. Patient seen and examined in room resting in bed comfortably. She is requesting flu vaccine, has not yet received one this year. He denies any fevers, chills, nausea, vomiting, diarrhea, chest pains, or shortness of breath. She states that her abdomen has been distended for some time and would like to know how long this will last. Objective Vitals Vital Signs Date Time Temp Pulse Resp B/P (MAP) Pulse Ox O2 Delivery O2 Flow Rate FiO2 02/28/17 05:58 97.9 70 20 98/60 (73) 97 Result Diagram: 02/25/17 0110 02/26/17 1049 Imaging Last Impressions Head CT 02/25/17 0000 Signed Impressions: Service Date/Time: Saturday, February 25, 2017 02:26 - CONCLUSION: 1. No evidence of acute intracranial pathology. No masses are identified. Rui Mccollum MD Objective Remarks ENERAL: This is a well-nourished, well-developed patient, in no apparent distress. SKIN: Cool and dry. HEAD: Atraumatic. Normocephalic. EYES: Extraocular motions intact. No scleral icterus. No injection or drainage. ENT: Nose without bleeding, purulent drainage or septal hematoma. NECK: Trachea midline. CARDIOVASCULAR: Regular rate and rhythm RESPIRATORY: Clear to auscultation. Breath sounds equal bilaterally. No wheezes , rales, or rhonchi. GASTROINTESTINAL: Abdomen soft, non-tender, obese, nondistended. Normoactive bowel sounds. MUSCULOSKELETAL: Extremities without clubbing, cyanosis, or edema. NEUROLOGICAL: Awake and alert to person and place. Motor and sensory grossly within normal limits. Five out of 5 muscle strength in all muscle groups. Normal speech. A/P Assessment and Plan 66-year-old female admitted due to acute exacerbation of schizophrenia and psychosis with past medical history of diabetes, HTN, HLD, and CAD. Schizophrenia with psychosis - Treatment per psychiatry - Abdomen does not look distended to me, unchanged from yesterday, she is obese. CAD HLD - Continue home dose statin, continue heart healthy diet, continue modifiable risk factors. Continue ASA HTN, stable - Continue patient's dose of Cozaar - Amlodipine 5 mg added yesterday, however did not receive it this AM secondary to low BP 98/60. Hold Amlodipine for now. - Continue trending blood pressures Hypothyroidism - TSH elevated unknown if this is due to noncompliance versus inadequate dosing. - Continue Synthroid 75 MCG's, will need recheck in 6 weeks DM II - Hemoglobin A1c 6.5 - Continue ADA diet, continue insulin sliding scale - Blood sugars well controlled, change schedule to BID AC Decreased renal function - Looking back through [facility] EMR patient's creatinine will range from 0.93- 2.11 this is from 2001 to present time. - She most likely has chronic kidney insufficiency - Continue diabetic, HTN, and HLD control. Neck pain - No complaints of neck pain today. - Tylenol available PRN DVT prophylaxis - Patient ambulating Patient discussed with patient, Flu vaccine entered. Vish Sanchez Feb 28, 2017 12:52
[2017-02-28] MEDS ORDERED: INFLUENZA VIRUS VACCINE (QUADRIVALENT) 0.5 ML SYR IM ONE (13:00)
--- NOTE | 2017-02-28 17:06 | HHI.PYPN ---
Subjective Remarks Pt seen and discussed with staff. She has been quiet but compliant with medications. She is cooperative with care. She denies SI/HI or AVH. She is tolerating medications without effect. Mental Status Examination Appearance: Appropriate Consciousness: Alert Orientation: Person, Place, Situation Motor Activity: Normal gait Speech: Unremarkable, Other Fund of Knowledge: Inadequate Attention and Concentration: Easily Distracted Memory: Impaired Mood: Appropriate Affect: Appropriate Thought Process & Associations: Loose associations Thought Content: Other (disorganization) Hallucination Type: None Delusion Type: None Suicidal Ideation: No Suicidal Plan: No Suicidal Intention: No Homicidal Ideation: No Homicidal Plan: No Homicidal Intention: No Insight: Poor Judgment: Poor Results Vitals/IOs Vital Signs Date Time Temp Pulse Resp B/P (MAP) Pulse Ox O2 Delivery O2 Flow Rate FiO2 02/28/17 05:58 97.9 70 20 98/60 (73) 97 02/25/17 18:51 Room Air Assessment & Plan Problem List: (1) Schizophrenia ICD Codes: F20.9 - Schizophrenia, unspecified Status: Acute (2) Catatonia associated with another mental disorder ICD Codes: F06.1 - Catatonic disorder due to known physiological condition Status: Resolved Assessment & Plan Continue current tx plan Pt improving.Estimated LOS: days Justification for Cont. Inpt. risk of decompensation Problem Qualifiers (1) Schizophrenia: Qualified Codes: F20.9 - Schizophrenia, unspecified Yanira Malik MD Feb 28, 2017 17:06
[2017-02-28 18:18] VITALS: BP 110/66; PULSE 80; RESP 18; TEMP 97.7; O2SAT 100
[2017-03-01 05:28] VITALS: BP 143/67; PULSE 76; RESP 16; TEMP 97.7; O2SAT 99
[2017-03-01] MEDS: LEVOTHYROXINE SODIUM 100 MCG TAB PO SCH (06:10)
[2017-03-01] MEDS: LEVOTHYROXINE SODIUM 75 MCG TAB PO SCH (06:10)
[2017-03-01] MEDS: BENZTROPINE MESYLATE 1 MG TAB PO SCH ×2 (06:10→17:35)
[2017-03-01] MEDS: INSULIN ASPART SUPPLEMENTAL SCALE SQ SCH (07:00)
[2017-03-01] MEDS: REMOVE OLD NICOTINE PATCH T-DERMAL SCH (09:00)
[2017-03-01] MEDS: LOSARTAN 50 MG TAB PO SCH (09:59)
[2017-03-01] MEDS: clonazePAM 0.5 MG TAB PO SCH ×2 (09:59→21:43)
[2017-03-01] MEDS: PRAVASTATIN SOD 80 MG TAB PO SCH (10:00)
[2017-03-01] MEDS: LORATADINE 10 MG TAB PO SCH (10:00)
[2017-03-01] MEDS: risperiDONE 1 MG TAB PO SCH ×2 (10:00→21:43)
[2017-03-01] MEDS: NICOTINE 21 MG/24 HR PATCH T-DERMAL SCH (10:00)
[2017-03-01] MEDS: ASPIRIN 81 MG CHEW TAB CHEW SCH (10:00)
--- NOTE | 2017-03-01 13:53 | HHI.PR ---
Subjective Remarks Follow-up visit on 66-year-old female with acute exacerbation of schizophrenia, psychosis, diabetes, HTN , hyperlipidemia, and coronary artery disease. Patient seen and examined resting in bed comfortably in no acute distress. She denies any fevers, chills, nausea, vomiting, diarrhea. She tells me that she feels as if her stomach is likely amanda bear's. Denies any abdominal pain, changes to bowel movements. Objective Vitals Vital Signs Date Time Temp Pulse Resp B/P (MAP) Pulse Ox O2 Delivery O2 Flow Rate FiO2 03/01/17 05:28 97.7 76 16 143/67 (92) 99 02/28/17 18:18 97.7 80 18 110/66 (81) 100 I/O 02/28/17 02/28/17 02/28/17 03/01/17 03/01/17 03/01/17 07:00 15:00 23:00 07:00 15:00 23:00 Intake Total 480 ml Balance 480 ml Intake Oral 480 ml Result Diagram: 02/25/17 0110 02/26/17 1049 Imaging Last Impressions Head CT 02/25/17 0000 Signed Impressions: Service Date/Time: Saturday, February 25, 2017 02:26 - CONCLUSION: 1. No evidence of acute intracranial pathology. No masses are identified. Rui Mccollum MD Objective Remarks ENERAL: This is a well-nourished, well-developed patient, in no apparent distress. SKIN: Cool and dry. HEAD: Atraumatic. Normocephalic. EYES: Extraocular motions intact. No scleral icterus. No injection or drainage. ENT: Nose without bleeding, purulent drainage or septal hematoma. NECK: Trachea midline. CARDIOVASCULAR: Regular rate and rhythm RESPIRATORY: Clear to auscultation. Breath sounds equal bilaterally. No wheezes , rales, or rhonchi. GASTROINTESTINAL: Abdomen soft, non-tender, obese, nondistended. Normoactive bowel sounds. MUSCULOSKELETAL: Extremities without clubbing, cyanosis, or edema. NEUROLOGICAL: Awake and alert to person and place. Motor and sensory grossly within normal limits. Five out of 5 muscle strength in all muscle groups. Normal speech. A/P Assessment and Plan 66-year-old female admitted due to acute exacerbation of schizophrenia and psychosis with past medical history of diabetes, HTN, HLD, and CAD. Schizophrenia with psychosis - Treatment per psychiatry - Abdomen soft, obese, unchanged. CAD HLD - Continue home dose statin, continue heart healthy diet, continue modifiable risk factors. Continue ASA HTN, stable - Continue patient's dose of Cozaar, BP stable. Hypothyroidism - TSH elevated unknown if this is due to noncompliance versus inadequate dosing. No tachycardia noted on vital signs. - Continue Synthroid 75 MCG's, will need recheck in 6 weeks as outpatient. DM II - Hemoglobin A1c 6.5 - Continue ADA diet, patient with Accu-Cheks and sliding scale, no coverage has been provided. - Discontinue Accu-Cheks and sliding scale, diabetes controlled with diet. Decreased renal function - Looking back through [employer] EMR patient's creatinine will range from 0.93- 2.11 this is from 2001 to present time. - She most likely has chronic kidney disease. Recheck BMP tomorrow - Continue glycemic control with diet, HTN controlled, HLD control. DVT prophylaxis - Patient ambulating Patient discussed with nurse. We will sign off, please reconsult if needed. Vish Sanchez Mar 01, 2017 13:53
--- NOTE | 2017-03-01 14:43 | HHI.PYPN ---
Subjective Remarks Pt seen and discussed with staff. She has been seclusive to room. She required coaxing to take medications. She conduct interview with face half covered by blanket. She is guarded and paranoid. No SI/HI Mental Status Examination Appearance: Appropriate Consciousness: Alert Orientation: Person, Place, Situation Motor Activity: Normal gait Speech: Unremarkable, Other Fund of Knowledge: Inadequate Attention and Concentration: Easily Distracted Memory: Impaired Mood: Appropriate Affect: Appropriate Thought Process & Associations: Loose associations Thought Content: Other (disorganization) Hallucination Type: None Delusion Type: None Suicidal Ideation: No Suicidal Plan: No Suicidal Intention: No Homicidal Ideation: No Homicidal Plan: No Homicidal Intention: No Insight: Poor Judgment: Poor Results Vitals/IOs Vital Signs Date Time Temp Pulse Resp B/P (MAP) Pulse Ox O2 Delivery O2 Flow Rate FiO2 03/01/17 05:28 97.7 76 16 143/67 (92) 99 02/25/17 18:51 Room Air Intake and Output 03/01/17 03/01/17 03/02/17 08:00 16:00 00:00 Intake Total 240 ml 240 ml Balance 240 ml 240 ml Assessment & Plan Problem List: (1) Schizophrenia ICD Codes: F20.9 - Schizophrenia, unspecified Status: Acute (2) Catatonia associated with another mental disorder ICD Codes: F06.1 - Catatonic disorder due to known physiological condition Status: Resolved Assessment & Plan Continue current tx plan. Estimated LOS: days Justification for Cont. Inpt. impairments in reality testing. Problem Qualifiers (1) Schizophrenia: Qualified Codes: F20.9 - Schizophrenia, unspecified Yanira Malik MD Mar 01, 2017 14:43
[2017-03-01 17:15] VITALS: BP 144/92; PULSE 90; RESP 18; TEMP 97.9; O2SAT 96
[2017-03-02] MEDS: LEVOTHYROXINE SODIUM 100 MCG TAB PO SCH (05:33)
[2017-03-02] MEDS: BENZTROPINE MESYLATE 1 MG TAB PO SCH ×2 (05:33→17:39)
[2017-03-02] MEDS: LEVOTHYROXINE SODIUM 75 MCG TAB PO SCH (05:33)
[2017-03-02] MEDS: ACETAMINOPHEN 325 MG TAB PO PRN (05:34)
[2017-03-02 05:48] VITALS: BP 108/59; PULSE 77; RESP 18; TEMP 97.8; O2SAT 99
[2017-03-02] MEDS: REMOVE OLD NICOTINE PATCH T-DERMAL SCH (09:00)
[2017-03-02] MEDS: LOSARTAN 50 MG TAB PO SCH ×2 (09:00→09:35)
[2017-03-02] MEDS: LORATADINE 10 MG TAB PO SCH (09:35)
[2017-03-02] MEDS: clonazePAM 0.5 MG TAB PO SCH ×2 (09:35→21:17)
[2017-03-02] MEDS: risperiDONE 1 MG TAB PO SCH ×2 (09:35→21:17)
[2017-03-02] MEDS: PRAVASTATIN SOD 80 MG TAB PO SCH (09:35)
[2017-03-02] MEDS: NICOTINE 21 MG/24 HR PATCH T-DERMAL SCH (09:35)
[2017-03-02] MEDS: ASPIRIN 81 MG CHEW TAB CHEW SCH (09:35)
[2017-03-02 12:01] LABS: BICARBONATE 30.5 MEQ/L (21.0-32.0); CALCIUM 9.7 MG/DL (8.5-10.1); CREATININE 1.62 MG/DL (0.50-1.00)
[2017-03-02 18:00] VITALS: BP 165/83; PULSE 90; RESP 18; TEMP 97.5; O2SAT 99
[2017-03-03 05:21] VITALS: BP 125/65; PULSE 76; RESP 17; TEMP 97.6; O2SAT 97
[2017-03-03] MEDS: LEVOTHYROXINE SODIUM 100 MCG TAB PO SCH (06:07)
[2017-03-03] MEDS: LEVOTHYROXINE SODIUM 75 MCG TAB PO SCH (06:07)
[2017-03-03] MEDS: BENZTROPINE MESYLATE 1 MG TAB PO SCH ×2 (06:08→17:35)
[2017-03-03 08:37] VITALS: BP 127/65; PULSE 76; RESP 17; TEMP 97.6; O2SAT 97
[2017-03-03] MEDS: REMOVE OLD NICOTINE PATCH T-DERMAL SCH (09:00)
[2017-03-03] MEDS: PRAVASTATIN SOD 80 MG TAB PO SCH (09:34)
[2017-03-03] MEDS: risperiDONE 1 MG TAB PO SCH (09:35)
[2017-03-03] MEDS: LORATADINE 10 MG TAB PO SCH (09:35)
[2017-03-03] MEDS: LOSARTAN 50 MG TAB PO SCH (09:35)
[2017-03-03] MEDS: NICOTINE 21 MG/24 HR PATCH T-DERMAL SCH (09:35)
[2017-03-03] MEDS: clonazePAM 0.5 MG TAB PO SCH (09:35)
[2017-03-03] MEDS: ASPIRIN 81 MG CHEW TAB CHEW SCH (09:35)
[2017-03-03] MEDS ORDERED: PRAV80TA PO (09:56)
[2017-03-03] MEDS ORDERED: Benztropine PO (09:56)
[2017-03-03] MEDS ORDERED: CLAR10TA7 PO (09:56)
[2017-03-03] MEDS ORDERED: RISP1 PO ×2 (09:56)
[2017-03-03] MEDS ORDERED: LEVO.075 PO (09:56)
[2017-03-03] MEDS ORDERED: CLON.5 PO (09:56)
[2017-03-03] MEDS ORDERED: COZA50TA PO (09:56)
[2017-03-03] MEDS ORDERED: ASPI81 CHEW (09:56)
--- NOTE | 2017-03-03 10:03 | HHI.DS ---
Psychiatry Discharge Summary Inpatient Psychiatric care?: Yes Advance Directive: No Reason Not Provided: DOES NOT WANT Mental Health AdvanceDirective: No Health Care Proxy: No Admission Admission Date Feb 25, 2017 at 16:28 Admission Diagnosis: (1) Schizophrenia ICD Code: F20.9 - Schizophrenia, unspecified Brief History The patient is a 66 year old woman, domiciled with her sister, unemployed, supported by [facility], with psychiatric history of schizophrenia, multiple psychiatric hospitalizations, she is on Risperdal 1 mg in the morning, 3 mg at bedtime, benztropine 1 mg twice a day, no previous suicidal attempts, COPD, who was brought in by [facility] for altered mental status for 1 day. As per triage note, pt has repetitive question and black stares and history of schizophrenia. Pt has been in the ED for a few hours prior to moving to a medical room so I was not able to speak with [facility]. On psychiatric evaluation the patient at the beginning is selectively mute, not speaking, just answering yes or not, she is visibly internally preoccupied. She says that she feels fine and she came here for no reason. To most of my questions she answered I don't know and stares. I spoke with his sister by phone, who told me that the patient was sent to the ER because she has been acutely psychotic, very aggressive at home with family members, and she has stated multiple times that she wants to kill her sister. She has been compliant with her medications, but she has been escalating to psychosis in the last 2 or 3 days. As per sister the patient does not use any drugs or alcohol. 02/27/17 - Second opinion Patient seen for second opinion. Patient is a 66 y/o AA woman, domiciled with sister, unemployed on SSI with past psychiatric history of schizophrenia, multiple admissions, no prior suicide attempts who was brought in by EMS for altered mental status. Patient was found lying on hospital bed, calm and cooperative. She was noted to be somewhat disorganized during interview. She mentions that she came to the hospital because she was feeling ill and could not stand up. She states that her mood has been "fresh" but unable to recall events that brought her into the hospital. Patient admits to noncompliance to medications prior to admission. Tobacco Use In Past 30 Days: 5 or More Cigarettes/Day Alcohol Use: Never Hospital Course The patient was admitted on the Johnson act due to increased psychosis and aggressive behavior at home. Immediate psychiatric and psychosocial assessment were performed. Safety measures taken. Patient was admitted in 2700 unit. She was started in her home medication, Risperdal 2 mg twice a day, that was subsequently increased to 2 mg in the morning and 3 mg at bedtime, takes dropping 1 mg twice a day, clonazepam 0.5 twice a day, that was subsequently increased to 1 mg twice a day to help with restlessness and catatonic symptoms. Patient has was initiated in individual and group therapies. During her stay in the hospital she developed symptoms of catatonia that resolved and responded appropriately to benzodiazepines. She did not have any behavioral dysregulation , agitation or aggressive behavior. She was usually very calm, cooperative, pleasant and compliant with her medications. At the moment of discharge the patient still have some flat affect and poverty of speech, but no major psychosis, agitation, aggressive behavior, symptomatology of depression. She denies suicidal or homicidal ideation, she denies visual and auditory hallucinations. Results Blood Pressure 127 / 65 Vital Signs Date Time Temp Pulse Resp B/P (MAP) Pulse Ox O2 Delivery O2 Flow Rate FiO2 03/03/17 08:37 97.6 76 17 127/65 (85) 97 Laboratory Tests Test 03/02/17 11:03 Blood Urea Nitrogen 24 MG/DL (7-18) Creatinine 1.62 MG/DL (0.50-1.00) Random Glucose 109 MG/DL (74-106) Estimat Glomerular Filtration Rate 38 ML/MIN (>89) Laboratory Results Test 02/26/17 10:49 Cholesterol Level 149 MG/DL (120-200) HDL Cholesterol 44.2 MG/DL (40.0-60.0) Hemoglobin A1c 6.5 % (4.3-6.0) LDL Cholesterol 82 MG/DL (0-99) Triglycerides Level 116 MG/DL (42-150) Summary of Procedures None Imaging Last Impressions Head CT 02/25/17 0000 Signed Impressions: Service Date/Time: Saturday, February 25, 2017 02:26 - CONCLUSION: 1. No evidence of acute intracranial pathology. No masses are identified. Rui Mccollum MD Pending results at discharge: No Medications # of Antipsychotic meds at D/C: 1 Approp Antipsych med options 1 - Minimum of three failed multiple trials of monotherapy. 2 - Documented plan to taper to monotherapy due to previous use of multiple meds OR cross-taper in progress at D/C. 3 - Documentation of augmentation of Clozapine. 4 - Justification other than those listed in allowable values 1-3, document here : Discharge Discharge Date: Mar 03, 2017 Discharge Diagnosis: (1) Schizophrenia ICD Code: F20.9 - Schizophrenia, unspecified Status: Acute (2) Catatonia associated with another mental disorder ICD Code: F06.1 - Catatonic disorder due to known physiological condition Status: Resolved Pt Condition on Discharge: Stable Discharge Disposition: Discharge Home Discharge Instructions Diet Instructions: Diabetic Diet Activities you can perform: Weight Bearing as Ketan Scheduled Appointment: Martin Mijares Appointment Date: Mar 03, 2017 Appointment Time: 7:30 a.m. Discharge Time > 30 minutes Mental Status Examination Appearance: Appropriate Consciousness: Alert Orientation: Person, Place, Situation Motor Activity: Normal gait Speech: Unremarkable, Other Fund of Knowledge: Inadequate Attention and Concentration: Easily Distracted Memory: Impaired Mood: Appropriate Affect: Appropriate Thought Process & Associations: Loose associations Thought Content: Other (disorganization) Hallucination Type: None Delusion Type: None Suicidal Ideation: No Suicidal Plan: No Suicidal Intention: No Homicidal Ideation: No Homicidal Plan: No Homicidal Intention: No Insight: Poor Judgment: Poor Discharge/Advance Care Plan Health Problems: (1) Schizophrenia (2) Catatonia associated with another mental disorder Goals to promote your health * To prevent worsening of your condition and complications * To maintain your health at the optimal level Directions to meet your goals Take your medications as prescribed Follow your dietary instruction Follow activity as directed Keep your appointments as scheduled Take your immunizations and boosters as scheduled If your symptoms worsen call your PCP, if no PCP go to Urgent Care Center or Emergency Room For 08/09 questions related to your inpatient stay or results of tests pending at discharge, please contact Dr. Kadeem Alonso at Smoking is Dangerous to Your Health. Avoid second hand smoking Problem Qualifiers (1) Schizophrenia: Qualified Codes: F20.9 - Schizophrenia, unspecified Kadeem Alonso MD Mar 03, 2017 10:03
[2017-03-03 17:49] VITALS: BP 95/65; PULSE 96; RESP 18; TEMP 97.7; O2SAT 100
== END 2017-03-03 20:20 | disposition home or self-care (01) | DRG 885 ==
LOC: NEDAMB 19:04 → NEDA 02-25 16:28 → H270 02-25 19:54 → H260 02-27 11:16
PROVIDERS: ADMIT Psychiatry & Neurology Psychiatry; ATTEND Psychiatry & Neurology Psychiatry
DX: F20.2 Catatonic schizophrenia (principal); E11.22 Type 2 diabetes mellitus with diabetic chronic kidney disease; F41.9 Anxiety disorder, unspecified; R30.0 Dysuria; N18.9 Chronic kidney disease, unspecified; K21.9 Gastro-esophageal reflux disease without esophagitis; I12.9 Hypertensive chronic kidney disease with stage 1 through stage 4 chronic kidney disease, or unspecified chronic kidney disease; I25.2 Old myocardial infarction; E03.9 Hypothyroidism, unspecified; F94.0 Selective mutism; E78.5 Hyperlipidemia, unspecified; I25.10 Atherosclerotic heart disease of native coronary artery without angina pectoris; M54.2 Cervicalgia; E66.9 Obesity, unspecified; R45.850 Homicidal ideations; F12.90 Cannabis use, unspecified, uncomplicated; F17.210 Nicotine dependence, cigarettes, uncomplicated; Z23 Encounter for immunization; Z68.33 Body mass index [BMI] 33.0-33.9, adult; Z79.84 Long term (current) use of oral hypoglycemic drugs; Z95.0 Presence of cardiac pacemaker; Z95.5 Presence of coronary angioplasty implant and graft; Z88.0 Allergy status to penicillin; Z91.14 Patient's other noncompliance with medication regimen
CPT/HCPCS: 70450; 80048; 80061; 82140; 82948; 83036; 84443; 85025; 85610; 85730; 90686; J1815; Q2038